=== PATIENT | male | born 1940 | race Caucasian/White ===

== ENCOUNTER 2017-04-29 09:57 | Outpatient (CLI) | payer MEDICARE, BC ==
--- NOTE | 2017-04-29 12:08 | RAD ---
CHEST TWO VIEWS: History: Dyspnea. Comparison: 04-20-15 FINDINGS: The cardiac silhouette and pulmonary vasculature are unremarkable. Mediastinum is midline. Lungs ramana in hyperinflated with flattening of each hemidiaphragm. There is no lobar consolidation, pneumothorax , or pleural fluid evident. Prostheses at each shoulder are apparent. IMPRESSION: Chronic type findings are stable. POS: [facility]
== END 2017-04-29 09:58 | disposition home or self-care (01) ==
LOC: RAD 09:57
PROVIDERS: ATTEND Internal Medicine
DX: R06.00 Dyspnea, unspecified (principal)
CPT/HCPCS: 71020

== ENCOUNTER 2017-05-06 11:01 | Emergency (ER) | payer MEDICARE, BC ==
--- NOTE | 2017-05-06 12:33 | RAD ---
CHEST TWO VIEWS: Comparison: 04-29-17 Clinical history: Dyspnea. FINDINGS: There is hyperinflation of the lungs with mild interstitial prominence bilaterally. Slight liner dens ity is seen at the left lateral lung base. Cardiac silhouette is stable. No significant interval villegas ge otherwise depicted. IMPRESSION: 1. Stable chest. 2. COPD. 3. No lobar consolidation. POS: [facility]
[2017-05-06] MEDS ORDERED: predniSONE 20 MG TAB ONE (12:38)
== END 2017-05-06 12:43 | disposition home or self-care (01) ==
LOC: SCSER 11:01
DX: J44.1 Chronic obstructive pulmonary disease with (acute) exacerbation (principal); K21.9 Gastro-esophageal reflux disease without esophagitis; E78.5 Hyperlipidemia, unspecified; I10 Essential (primary) hypertension; J45.909 Unspecified asthma, uncomplicated; Z79.899 Other long term (current) drug therapy; Z79.82 Long term (current) use of aspirin
CPT/HCPCS: 71020; 94640; J7506; J7620

== ENCOUNTER 2018-03-29 09:26 | Emergency (ER) | payer MEDICARE, BC ==
[~2018-03-29 09:26] MED LIST: Iopamidol 370 76% 100 ML VIAL ONE
[2018-03-29 10:13] LABS: #Basophils 0.1 thou/uL (0.0-0.2); #Eosinphils 0.1 thou/uL (0.0-0.7); #Lymphocytes 0.7 thou/uL (1.20-3.40); %Basophils 0.9 % (0.0-1.0); %Eosinophils 0.8 % (0.0-10.0); %Lymphocytes 6.1 % (21.0-51.0); %Monocytes 8.2 % (0.0-10.0); Hemoglobin 14.9 g/dL (14.0-18.0); Mean Corpuscular HGB CONC 34.5 g/dL (32.0-36.0); Mean Corpuscular Hemoglobin 29.8 pg (27.0-31.0); Mean Corpuscular Volume 86.5 fL (78.0-98.0); Mean Platelet Volume 7.5 fL (7.4-10.4); Platelet Count 181 thou/uL (130-400); RBC Distribution Width 11.5 % (11.5-14.5); White Blood Cell (WBC) Count 11.9 thou/uL (4.8-10.8)
[2018-03-29 10:17] LABS: PTT 26.9 SEC (22.9-36.1); Prothrombin Time 13.3 SEC (12.0-14.7)
[2018-03-29 10:18] LABS: D-Dimer Test 0.85 *mcg/mL (0.27-0.43)
[2018-03-29] MEDS ORDERED: Sodium Chloride For Inhalation 0.9% 3 ML NEB ONE (10:22)
[2018-03-29 10:27] LABS: CKMB 1.8 ng/mL (0-6.6); Troponin I Less than 0.010 ng/mL (< 0.028)
[2018-03-29 10:29] LABS: ALT (SGPT) 33 U/L (8-55); AST (SGOT) 26 U/L (5-34); Albumin 4.3 g/dL (3.4-4.8); Alkaline Phosphatase 73 U/L (40-150); Anion Gap 15 mmol/L (10-20); BUN (Urea Nitrogen) 19 mg/dL (8.4-25.7); Bilirubin, Total 1.6 mg/dL (0.2-1.2); CK (CPK) 267 U/L (30-200); Calc. Creatinine Clearance 0 mL/min (70-130); Calcium 9.2 mg/dL (7.8-10.44); Carbon Dioxide 26 mmol/L (23-31); Chloride 105 mmol/L (98-107); Estimated GFR-MDRD 56; Globulin 2.7 g/dL (2.4-3.5); Glucose 112 mg/dL (83-110); Potassium 3.5 mmol/L (3.5-5.1); Sodium 142 mmol/L (136-145)
--- NOTE | 2018-03-29 11:52 | RAD ---
PORTABLE CHEST 1 VIEW: Date: 03/29/18 Time: 1020 hours HISTORY: Left-sided chest pain. FINDINGS: The heart size is borderline. The lungs are well expanded without focal areas of consolidation, pneum othorax, lyndsay pulmonary edema, or pleural effusions. There are bilateral humeral head prostheses. IMPRESSION: No acute process. POS: [facility]
[2018-03-29] MEDS ORDERED: predniSONE 20 MG TAB ONE (12:56)
--- NOTE | 2018-03-29 14:24 | CT ---
CT PULMONARY ANGIOGRAM WITH IV CONTRAST AND 3D POSTPROCESSING: Date: 03/29/18 HISTORY: Left-sided chest pain, elevated D-Dimer. FINDINGS: The pulmonary arterial vasculature is well opacified without filling defects to suggest pulmonary emb olism. The thoracic aorta is well opacified without aneurysm or dissection. No pleural or pericardial effusions are seen. No pneumothoraces, lobar consolidation, or pulmonary nodules/masses are noted. T here are degenerative changes in the spine. IMPRESSION: No CT evidence of pulmonary embolism or thoracic aortic dissection. POS: [facility]
== END 2018-03-29 12:59 | disposition home or self-care (01) ==
LOC: SCSER 09:26
DX: J44.1 Chronic obstructive pulmonary disease with (acute) exacerbation (principal); K21.9 Gastro-esophageal reflux disease without esophagitis; I25.10 Atherosclerotic heart disease of native coronary artery without angina pectoris; E78.5 Hyperlipidemia, unspecified; I10 Essential (primary) hypertension; Z79.899 Other long term (current) drug therapy; Z79.82 Long term (current) use of aspirin
CPT/HCPCS: 71045; 71275; 80053; 82550; 82553; 83880; 84484; 85025; 85379; 85610; 85730; 93005; 94640; J7506; J7620

== ENCOUNTER 2018-03-30 18:19 | Emergency (ER) | payer MEDICARE, BC ==
[2018-03-30 19:26] LABS: #Lymphocytes 0.4 thou/uL (1.20-3.40); #Monocytes 0.3 thou/uL (0.11-0.59); #Neutrophils 8.8 thou/uL (1.40-6.50); %Eosinophils 0.2 % (0.0-10.0); %Lymphocytes 4.4 % (21.0-51.0); %Monocytes 2.6 % (0.0-10.0); %Neutrophils 92.8 % (42.0-75.0); Mean Corpuscular HGB CONC 34.3 g/dL (32.0-36.0); Mean Corpuscular Hemoglobin 31.2 pg (27.0-31.0); Mean Corpuscular Volume 91.2 fL (78.0-98.0); Mean Platelet Volume 7.3 fL (7.4-10.4); Platelet Count 202 thou/uL (130-400); RBC Distribution Width 12.1 % (11.5-14.5); Red Blood Cell (RBC) Count 4.48 mill/uL (4.70-6.10); White Blood Cell (WBC) Count 9.5 thou/uL (4.8-10.8)
[2018-03-30 19:45] LABS: ALT (SGPT) 30 U/L (8-55); AST (SGOT) 26 U/L (5-34); Albumin 4.1 g/dL (3.4-4.8); Alkaline Phosphatase 74 U/L (40-150); Anion Gap 13 mmol/L (10-20); BUN (Urea Nitrogen) 23 mg/dL (8.4-25.7); Bilirubin, Total 0.8 mg/dL (0.2-1.2); Calc. Creatinine Clearance 0 mL/min (70-130); Calcium 8.7 mg/dL (7.8-10.44); Carbon Dioxide 24 mmol/L (23-31); Chloride 100 mmol/L (98-107); Estimated GFR-MDRD 52; Globulin 2.6 g/dL (2.4-3.5); Glucose 134 mg/dL (83-110); Potassium 3.7 mmol/L (3.5-5.1); Protein, Total 6.7 g/dL (5.8-8.1); Sodium 133 mmol/L (136-145)
[2018-03-30 19:49] LABS: Troponin I Less than 0.010 ng/mL (< 0.028)
--- NOTE | 2018-03-30 19:53 | CT ---
CT CHEST WITHOUT CONTRAST: Technique: Multiple contiguous axial images were obtained through the chest without IV enhancement. Indications: Cough, shortness of breath. FINDINGS: The lung bonner are well aerated. No infiltrate or effusion identified. No evidence of adenopathy. IMPRESSION: No acute lung process. POS: [facility]
== END 2018-03-30 20:56 | disposition home or self-care (01) ==
LOC: ERS 18:19
DX: J44.1 Chronic obstructive pulmonary disease with (acute) exacerbation (principal); J40 Bronchitis, not specified as acute or chronic; K21.9 Gastro-esophageal reflux disease without esophagitis; E78.5 Hyperlipidemia, unspecified; I10 Essential (primary) hypertension; I25.10 Atherosclerotic heart disease of native coronary artery without angina pectoris; Z79.899 Other long term (current) drug therapy; Z79.82 Long term (current) use of aspirin
CPT/HCPCS: 36415; 71250; 80053; 82553; 84484; 85025

== ENCOUNTER 2019-06-02 15:48 | Outpatient (CLI) | payer MEDICARE, BC ==
--- NOTE | 2019-06-02 16:21 | RAD ---
EXAM: Two views chest PROVIDED CLINICAL HISTORY: Dyspnea COMPARISON: 05/06/2017 FINDINGS: Cardiac silhouette is mildly enlarged. The pulmonary vasculature is within normal limits. The lungs a re clear. Bilateral glenohumeral prostheses are present. Degenerative changes are again seen in the spine with right convex curvature of thoracolumbar spine. IMPRESSION: 1. Mild cardiomegaly without overt CHF. 2. No acute cardiopulmonary process..
== END 2019-06-02 15:49 | disposition home or self-care (01) ==
LOC: RAD 15:48
PROVIDERS: ATTEND Internal Medicine
DX: R06.00 Dyspnea, unspecified (principal); I51.7 Cardiomegaly
CPT/HCPCS: 71046